=== PATIENT | female | born 1995 | race Caucasian/White ===

== ENCOUNTER 2020-08-17 12:37 | Emergency (ER) | payer BC, SELFPAY ==
[2020-08-17 12:38] VITALS: BP 118/70; PULSE 103; RESP 16; TEMP 36.6; O2SAT 98; BMI 29.2
--- NOTE | 2020-08-17 13:04 | HMH.EDUTC ---
[facility] [place] Impression: Sore [place] (viral) Disposition: Home, Self-Care Condition on Discharge: Good Instructions: Sore Throat Additional Instructions: *Monitor Temp, Over the counter Motrin or Tylenol as directed/as needed Tylenol every 4 hours and Motrin every 6 hours (as long as your family doctor has told you that you can take it) for fever or pain. and straight to ER if unable to lower temp less than 101.0 after medication given *Warm salt water gargles may help to soothe the throat if your throat becomes sore or irritated *Throat Lozenges *Warm fluids like tea with honey may help to soothe the throat *Sleep elevated *Humidifier/Vaporizer Follow up IMMEDIATELY for new or worsening symptoms or no Noticeable improvement over the next 48-72 hours. 911 for difficulty breathing or swallowing Return if symptoms worsen Referrals: PCP,No [Primary Care Provider] - As needed Time of Disposition: 13:14 Medical Decision Making - Raad Inquiry Pt receiving controlled substance: No Raad was queried for this patient: No Vital Signs: 08/17/20 12:38 Temperature 98 F Temperature Source Oral Pulse Rate [Right] 103 H Respiratory Rate 16 Blood Pressure [Right Arm] 118/70 Blood Pressure Mean [Right Arm] 86 Blood Pressure Source [Right Arm] Automatic Cuff Blood Pressure Position [Right Arm] Sitting 02 Sat by Pulse Oximetry 98 Oxygen Delivery Method Room Air - Lab Data Lab results reviewed: Yes: I reviewed the patient's lab results. [facility] [place] - General Stated complaint: strep exposure Time Seen by Provider: 08/17/20 13:04 Mode of Arrival: Ambulatory Source of Information: Patient Limitations: No Limitations Description of Symptoms (Recalled from Triage Doc. by RN): PT ADVISES SHE THINKS SHE HAS STREP THROAT HEENT Symptoms (Recalled from RN notes): Yes (S/O SORE THROAT) Resp Symptoms (Recalled from RN notes): No Skin Symptoms (Recalled from RN notes): No MS Symptoms (Recalled from RN notes): No Functional Status (Recalled from RN notes): NA - History of Present Illness Provider Complaint: Patient states that she thinks she may have strep throat States that son was recently around someone at school that tested positive for strep and for the last 2-3 days they have been having sore throat Not sure if they have had a fever or not - Related Data Home Medications Medication Instructions Recorded Confirmed Multivitamin [Multi-Vitamin Plain] 1 tab PO DAILY 08/05/19 08/05/19 Previous Rx's Medication Instructions Recorded Azithromycin [Z-Tay 250mg Tab*] 250 mg PO UD DOSE PK #6 tab 08/05/19 Allergies Allergy/AdvReac Type Severity Reaction Status Date / Time No Known Allergies Allergy Verified 08/05/19 17:49 - Worker's Comp Is this a Worker's Comp case?: No [facility] History - Hepatitis A Screen Drug use history?: No High risk sexual behaviors?: No History of sexually transmitted infection?: No Currently employed?: No Childcare worker?: No Do you have indoor plumbing?: Yes Do you have electricity?: Yes Attestation statement:: This patient has been screened for Hepatitis A risk factors. I have reviewed the patient's past medical history: Yes - Social History Alcohol Intake: never Occupational Status: other ROS Obtained: Yes All systems reviewed & no additional complaints, Yes Systems reviewed as appropriate & no additional complaints - Constitutional Constitutional: Reports system reviewed and no additional complaints, except as docu, Denies body ache, Denies chills, Denies fever(s), Denies headache(s) - ENT Ears, Nose, Mouth, and Throat: Reports system reviewed and no additional complaints, except as docu, Denies nasal congestion, Denies nasal discharge, Reports sore throat - Cardiovascular Cardiovascular: Reports system reviewed and no additional complaints, except as docu - Respiratory Respiratory: Yes system reviewed and no additional complaints, except as
[2020-08-17 13:22] LABS: UTC Strep Screen (Rapid) Negative (Negative)
[2020-08-17 13:34] VITALS: BP 118/70; PULSE 103; RESP 16; TEMP 36.6; O2SAT 98
== END 2020-08-17 13:34 | disposition home or self-care (01) ==
PROVIDERS: Emergency Provider Nurse Practitioner
DX: J02.9 Acute pharyngitis, unspecified (principal)
CPT/HCPCS: 87880; 99201

== ENCOUNTER → 2020-11-28 15:48 | Outpatient (CLI) | payer BC, SELFPAY | PROVIDERS: PCP Physician Assistant; Visit Provider Nurse Practitioner | DX: Z11.1 Encounter for screening for respiratory tuberculosis (principal) ==

== ENCOUNTER 2022-08-20 09:32 | Emergency (ER) | payer BC, SELFPAY ==
[2022-08-20 11:51] VITALS: BP 140/88; PULSE 90; RESP 18; TEMP 37.4; O2SAT 96; BMI 30.9
--- NOTE | 2022-08-20 11:54 | EXP.UTC ---
Discharge Plan Disposition Patient Disposition: Home, Self-Care Condition: Good Prescriptions Prescriptions: New amoxicillin 875 mg tablet 875 mg PO BID Qty: 20 0RF No Action multivitamin 1 EACH tablet 1 tab PO DAILY azithromycin 250 MG tablet 250 mg PO UD DOSE PK Qty: 6 0RF Rx Instructions: Take two (2) tablets today, then one (1) tablet days #2 thru #5 Referrals Follow up/Referrals: Thalia Ryder APRN [Primary Care Provider] - See instructions Activity Restrictions/Add. Instructions Additional Instructions/Restrictions: *Monitor Temp, Over the counter Motrin or Tylenol as directed/as needed Tylenol every 4 hours and Motrin every 6 hours (as long as your family doctor has told you that you can take it) for fever or pain. and straight to ER if unable to lower temp less than 101.0 after medication given *Warm salt water gargles may help to soothe the throat *Throat Lozenges? *Warm fluids like tea with honey may help to soothe the throat? *Sleep elevated *Humidifier/Vaporizer Your throat swab was sent for culture. Those results are typically sent to your primary care. Be sure to follow up in 2-3 days with your family doctor/primary care physician if no improvement so they can review those result and treat if necessary. If you don?t have a primary care doctor, I recommend you get one but in the mean time, you will have to return to a walk in clinic Follow up IMMEDIATELY for new or worsening symptoms or no Noticeable improvement over the next 48-72 hours. 911 for difficulty breathing or swallowing Clinical Impressions Clinical Impression: Strep throat Stand Alone Forms Stand Alone Forms: Work/School Release Instructions Patient Instructions: Strep Throat, DI for Strep Throat Discharge ED Provider: Sammie Carrasquillo [facility] [place] H[place] General Stated complaint: Sore throat, fever, BA Mode of Arrival: Ambulatory Source of Information: Patient Limitations: No Limitations Time Seen by Provider: 08/20/22 11:54 Description of Symptoms (Recalled from Triage Doc. by RN): pt comes in with c/o sore throat, body aches, fever. ongoing for 2 days HEENT Symptoms (Recalled from RN notes): Yes Resp Symptoms (Recalled from RN notes): Yes Skin Symptoms (Recalled from RN notes): No MS Symptoms (Recalled from RN notes): No Functional Status (Recalled from RN notes): n/a History of Present Illness Provider Complaint: Patient states that she hasnt felt well for a couple of days States that she has been having fever, sore throat, body aches and hurts when she swallows States that today she was still not feeling well so she came in to get checked Related Data Home Medications Medication Instructions Recorded Confirmed multivitamin 1 tab PO DAILY Supplement 08/05/19 08/05/19 Previous Rx's Medication Instructions Recorded azithromycin 250 mg tablet 250 mg PO UD DOSE PK #6 tabs 08/05/19 amoxicillin 875 mg tablet 875 mg PO BID #20 tabs 08/20/22 Allergies Allergy/AdvReac Type Severity Reaction Status Date / Time No Known Allergies Allergy Verified 08/20/22 11:53 Worker's Comp Is this a Worker's Comp case?: No PFSH PFSH Social History Smoking Status: Unknown if ever smoked alcohol intake: never current occupational status: other Travel in the last 8 weeks: None ROS Obtained: Yes All systems reviewed & no additional complaints except as documented and Yes Systems reviewed as appropriate & no additional complaints except as documented Constitutional Constitutional: Reports system reviewed and no additional complaints, except as documented, Reports as per HPI, Reports fever(s) and Reports headache(s) ENT Ears, Nose, Mouth, and Throat: Reports system reviewed and no additional complaints, except as documented, Reports as per HPI, Reports headache(s) and Reports sore throat Cardiovascular Cardiovascular: Reports system reviewed and no additional complaints, except as do
[2022-08-20 12:11] LABS: UTC Influenza A Antigen Negative (Negative); UTC Influenza B Antigen Negative (Negative); UTC Strep Screen (Rapid) Positive (Negative)
[2022-08-20 12:13] VITALS: BP 140/88; PULSE 90; RESP 18; TEMP 37.4
[2022-08-20 12:14] LABS: UTC Pregnancy Test, Urine Negative (Negative)
== END 2022-08-20 12:16 | disposition home or self-care (01) ==
PROVIDERS: Emergency Provider Nurse Practitioner; PCP Nurse Practitioner Family
DX: J02.0 Streptococcal pharyngitis (principal)
CPT/HCPCS: 81025; 87804; 87880; 99212; G0463

== ENCOUNTER → 2022-10-24 13:33 | Outpatient (CLI) | payer BC, SELFPAY ==
--- NOTE | 2022-10-24 13:33 | US_ITS ---
FINAL REPORT CLINICAL HISTORY: abnormal bleeding FINDINGS: Transvaginal sonographic images of the pelvis were obtained. The uterus measures 8.2 x 4.7 x 3.8 cm. The endometrium measures 7 mm, which is within normal limits. No uterine mass is identified. The right ovary measures 2.3 cm in length and left ovary measures 1.8 cm in length. Normal blood flow seen to the ovaries. Small follicles are present. There is no evidence of free fluid. IMPRESSION: No acute abnormality identified. Reviewed, Interpreted and Dictated by Viktor Valdes III, MD Transcribed by Melchor Guidry Authenticated and [facility]
== END ==
PROVIDERS: PCP Nurse Practitioner Family; Visit Provider Obstetrics & Gynecology
DX: N93.9 Abnormal uterine and vaginal bleeding, unspecified (principal)
CPT/HCPCS: 76830